=== PATIENT | female | born 1975 | race Caucasian/White ===

== ENCOUNTER 2018-11-08 10:10 | Emergency (ER) | payer MEDICAID ==
[~2018-11-08] VITALS: Ht 154.9 cm; Wt 70.2 kg
[2018-11-08 10:12] VITALS: Ht 154.9 cm; Wt 70.2 kg
[2018-11-08] MEDS ORDERED: FER325 PO (15:46)
[2018-11-08] MEDS ORDERED: DOCU-144 PO (15:46)
--- NOTE | 2018-11-08 15:55 | ERD ---
ER Documentation Chief Complaint Chief Complaint pt bib family with c/o vag bleeding x 11 days , pale HPI 43-year-old female presenting with vaginal bleeding times 11 days. Patient has been passing clots. She never had this before. She is not . Medical history is hypertension. Has not taken medications. Allergic to amoxicillin. Social history denies. ROS All systems reviewed and are negative except as per history of present illness. Medications Home Meds Active Scripts Docusate Sodium* (Colace*) 100 Mg Capsule, 100 MG PO DAILY, #30 CAP Prov:DON ROSAS PA-C 11/08/18 Ferrous Sulfate* (Ferrous Sulfate*) 325 Mg Tabec, 325 MG PO DAILY, #30 TAB Prov:DON ROSAS PA-C 11/08/18 Allergies Allergies: Coded Allergies: amoxicillin (Verified Allergy, Unknown, 11/08/18) PMhx/Soc Hx Alcohol Use: No Hx Substance Use: No Hx Tobacco Use: No Smoking Status: Never smoker FmHx Family History: No diabetes, No coronary disease, No other Physical Exam Vitals Vital Signs Date Temp Pulse Resp B/P (MAP) Pulse Ox O2 O2 Flow FiO2 Time Delivery Rate 11/08/18 99.3 96 18 177/92 100 10:12 (120) Physical Exam GENERAL: The patient is well-appearing, well-nourished, in no acute distress CHEST: Clear to auscultation bilaterally. There are no rales, wheezes or rhonchi. HEART: Regular rate and rhythm. No murmurs, clicks, rubs or gallops. No S3 or S4. ABDOMEN:Soft, nontender and nondistended. Good bowel sounds. No rebound or guarding. No gross peritonitis. No gross organomegaly or masses. : Pulling blood noted within the vaginal vault. Result Diagram: 11/08/18 1211 11/08/18 1101 Results 24 hrs Laboratory Tests Test 11/08/18 11:01 11/08/18 11:02 11/08/18 12:11 White Blood Count 14.3 10^3/ul 12.9 10^3/ul Red Blood Count 3.17 10^6/ul 3.07 10^6/ul Hemoglobin 9.2 g/dl 8.9 g/dl Hematocrit 28.2 % 27.2 % Mean Corpuscular Volume 89.0 fl 88.6 fl Mean Corpuscular Hemoglobin 29.0 pg 29.0 pg Mean Corpuscular 32.6 g/dl 32.7 g/dl Hemoglobin Concent Red Cell Distribution Width 13.6 % 13.6 % Platelet Count 300 10^3/UL 313 10^3/UL Mean Platelet Volume 10.4 fl 9.6 fl Immature Granulocytes % 0.300 % 0.300 % Neutrophils % 69.1 % 70.3 % Lymphocytes % 22.7 % 21.9 % Monocytes % 5.9 % 5.6 % Eosinophils % 1.7 % 1.6 % Basophils % 0.3 % 0.3 % Nucleated Red Blood Cells % 0.0 /100WBC 0.0 /100WBC Immature Granulocytes # 0.050 10^3/ul 0.040 10^3/ul Neutrophils # 9.9 10^3/ul 9.1 10^3/ul Lymphocytes # 3.2 10^3/ul 2.8 10^3/ul Monocytes # 0.9 10^3/ul 0.7 10^3/ul Eosinophils # 0.3 10^3/ul 0.2 10^3/ul Basophils # 0.0 10^3/ul 0.0 10^3/ul Nucleated Red Blood Cells # 0.0 10^3/ul 0.0 10^3/ul Urine Color YELLOW Urine Clarity CLEAR Urine pH 5.0 Urine Specific [place] 1.008 Urine Ketones NEGATIVE mg/dL Urine Nitrite NEGATIVE mg/dL Urine Bilirubin NEGATIVE mg/dL Urine Urobilinogen NEGATIVE mg/dL Urine Leukocyte Esterase NEGATIVE Cuong/ul Urine Microscopic RBC > 182 /HPF Urine Microscopic WBC 4 /HPF Urine Squamous Epithelial Cells FEW /HPF Urine Hemoglobin 3+ mg/dL Urine Glucose 3+ mg/dL Urine Total Protein NEGATIVE mg/dl Sodium Level 137 mmol/L Potassium Level 3.9 mmol/L Chloride Level 104 mmol/L Carbon Dioxide Level 22 mmol/L Anion Gap 11 Blood Urea Nitrogen 9 mg/dl Creatinine 0.56 mg/dl Est Glomerular Filtrat > 60 mL/min Rate mL/min Glucose Level 132 mg/dl Calcium Level 8.7 mg/dl Total Bilirubin 0.0 mg/dl Direct Bilirubin 0.00 mg/dl Indirect Bilirubin 0.0 mg/dl Aspartate Amino 37 IU/L Transf (AST/SGOT) Alanine 49 IU/L Aminotransferase (ALT/SGPT) Alkaline Phosphatase 69 IU/L Total Protein 6.9 g/dl Albumin 3.9 g/dl Globulin 3.00 g/dl Albumin/Globulin Ratio 1.30 Lipase 60 U/L POC Beta HCG, Qualitative NEGATIVE Procedures/MDM DIAGNOSTIC IMAGING REPORT Patient: MYRA MARTINEZ : 1975 Age: 43 Sex: F MR #: [id number] DOS: 11/08/18 1048 Ordering MD: MORALES ROSAS PA-C [facility] Room/Bed: PROCEDURE: US Pelvis. CLINICAL INDICATION: Vaginal bleeding TECHNIQUE: Multiple sonographic images of the pelvis were obtained utilizing transabdominal and endovaginal technique. The images were reviewed on a PACS workstation. COMPARISON: None. FINDINGS: The uterus is normal in size with a normal appearance of the myometrium. The uterus measures 8.6 x 4.6 x 6.1 cm. The endometrial stripe is homogeneous in appearance and has the thickness of 10 mm. The right ovary is normal in size and echogenicity. There is normal Doppler flow The right ovary measures 2.3 x 1.5 x 2.0 cm. The left ovary was not seen. No free fluid is present within the pelvis. RPTAT: AA IMPRESSION: Unremarkable pelvic ultrasound. Left ovary not visualized. ER Course: Dr. Hoover came to evaluate patient at bedside. Using ring forceps she removed a polyp which was sent for pathology. Bleeding resolved. MDM: 43-year-old female presenting with a polyp which was removed in the emergency room. Bleeding resolved. I have low suspicion for other acute abdominal emergencies. Patient will be discharged with supportive medications to improve hemoglobin after bleeding. Given polyp was removed hemoglobin will l ikely return to normal as bleeding has resolved. I have low suspicion for other acute abdominal emergencies. I have low suspicion for pelvic abnormalities. Patient is discharged with supportive medications. Patient is discharged with strict ER precautions and recommended follow-up with REFERRAL NURSE. All questions answered at discharge Departure Diagnosis: Primary Impression: Vaginal bleeding Condition: Stable Patient Instructions: Uterine Fibroids Referrals: REFERRAL NURSE [place] [id number] [facility] [address] [place] [address] [id number] OFFICE FAX RACHEL [place] [address] [place] [address] [address] [place] [address] [place] [address] DR RICCI [facility] [address], [address] [address] [address] MEDRANO [facility] [address] [address] [facility], [place] [address] [facility] [address] [place] [address] [facility] [id number] [address] PRÉEZ EV[address] [facility], [place] [address] DR MAC, MIKAYLA [address] [facility]. [address], [place] [address] DR FLORES [facility] [address] [place] [address] Additional Instructions: FOLLOW UP WITH YOUR PRIMARY CARE PHYSICIAN TOMORROW.Return to this facility if you are not improving as expected. DON ROSAS PA-C Nov 08, 2018 15:55
--- NOTE | 2018-11-08 16:05 | CONS ---
Date/Time of Note Date/Time of Note DATE: 11/08/18 TIME: 16:04 Assessment/Plan Assessment/Plan Assessment/Plan A: Menorrhagia. Anemia. Aborting myoma or polyp. P: The tissue was removed and the bleeding promptly resolved. Pt was given some juice, is to wait 30 minutes to assess bleeding status and then may be d/c'ed home. Will call the pt with the pathology results in a few days. Result Diagram: 11/08/18 1211 11/08/18 1101 Results 24hrs Laboratory Tests Test 11/08/18 11:01 11/08/18 11:02 11/08/18 12:11 White Blood Count 14.3 H 12.9 H Red Blood Count 3.17 L 3.07 L Hemoglobin 9.2 L 8.9 L Hematocrit 28.2 L 27.2 L Mean Corpuscular Volume 89.0 88.6 Mean Corpuscular Hemoglobin 29.0 29.0 Mean Corpuscular Hemoglobin Concent 32.6 32.7 Red Cell Distribution Width 13.6 13.6 Platelet Count 300 313 Mean Platelet Volume 10.4 9.6 Immature Granulocytes % 0.300 0.300 Neutrophils % 69.1 70.3 Lymphocytes % 22.7 21.9 Monocytes % 5.9 5.6 Eosinophils % 1.7 1.6 Basophils % 0.3 0.3 Nucleated Red Blood Cells % 0.0 0.0 Immature Granulocytes # 0.050 H 0.040 H Neutrophils # 9.9 H 9.1 H Lymphocytes # 3.2 H 2.8 Monocytes # 0.9 0.7 Eosinophils # 0.3 0.2 Basophils # 0.0 0.0 Nucleated Red Blood Cells # 0.0 0.0 Urine Color YELLOW Urine Clarity CLEAR Urine pH 5.0 Urine Specific [place] 1.008 Urine Ketones NEGATIVE Urine Nitrite NEGATIVE Urine Bilirubin NEGATIVE Urine Urobilinogen NEGATIVE Urine Leukocyte Esterase NEGATIVE Urine Microscopic RBC > 182 H Urine Microscopic WBC 4 Urine Squamous Epithelial Cells FEW Urine Hemoglobin 3+ H Urine Glucose 3+ H Urine Total Protein NEGATIVE Sodium Level 137 Potassium Level 3.9 Chloride Level 104 Carbon Dioxide Level 22 Anion Gap 11 Blood Urea Nitrogen 9 Creatinine 0.56 Est Glomerular Filtrat Rate mL/min > 60 Glucose Level 132 Calcium Level 8.7 Total Bilirubin 0.0 L Direct Bilirubin 0.00 Indirect Bilirubin 0.0 Aspartate Amino Transf (AST/SGOT) 37 Alanine Aminotransferase (ALT/SGPT) 49 Alkaline Phosphatase 69 Total Protein 6.9 Albumin 3.9 Globulin 3.00 Albumin/Globulin Ratio 1.30 Lipase 60 POC Beta HCG, Qualitative NEGATIVE Consultation Date/Type/Reason Admit Date/Time Nov 08, 2018 Date of Consultation: Nov 08, 2018 Type of Consult POLICE WORKER Reason for Consultation Heavy vaginal bleeding. Requesting Provider: DON ROSAS PA-C Hx of Present Illness Pt is a 43 y.o. s/p BTL with an 11 day h/o heavy vaginal bleeding. Pt reports she had a pap smear and POLICE WORKER exam 2 years ago in [facility] when she was also having heavy bleeding and she had a vaginal procedure at the hospital to remove polyps that stopped the bleeding and she has been fine until now. She does say she was given progesterone to take afterwards any time she had bleeding for 3 months and then she stopped. Her periods have been regular and normal with the last prior 10/15. Then 10/28 she started with this bleeding. The clots have been medium sized to large.She does have some dizziness.No HOOPER's. Respiratory: no complaints Cardiovascular: no complaints Genitourinary: bleeding Neurologic: no complaints Psychological: no complaints, nl mood/affect Past Medical History Medical History: hypertension (which was diagnosed during her only and she has been on blood pressure medication since that time, 12 years ago.) Medications Atenolol 50 mg q day Allergies: Coded Allergies: amoxicillin (Verified Allergy, Unknown, 11/08/18) Past Surgical History Tubal ligation. D and C? to remove uterine polyps. Family History Significant Family History: no pertinent family hx Social History Alcohol Use: none Smoking Status: Never smoker Drug Use: none Exam/Review of Systems Vital Signs Vitals Vital Signs Date Temp Pulse Resp B/P (MAP) Pulse Ox O2 O2 Flow FiO2 Time Delivery Rate 11/08/18 99.3 96 18 177/92 100 10:12 (120) Exam Constitutional: alert, oriented, well developed Psych: no complaints, nl mood/affect Respiratory: clear to auscultation, normal air movement Cardiovascular: regular rate and rhythm, nl pulses Gastrointestinal: soft, nl liver, spleen, non-tender Genitourinary - Female: other (Large clots in the vaginal vault were removed to reveal and aborting myoma or polyp which was grasped with a pair of ring forceps and twisted until it came off.) Neurological: NURSE ORTHOPEDIC II-XII intact, nl mental status Imaging Imaging Pelvic US essentially normal. EVELIO PÉREZ MD Nov 08, 2018 16:05
[2018-11-08 16:24] VITALS: BP 127/70; PULSE 95; RESP 18
== END 2018-11-08 16:36 | disposition home or self-care (01) ==
LOC: FTE 10:10
DX: N93.9 Abnormal uterine and vaginal bleeding, unspecified (principal)
CPT/HCPCS: 36415; 76830; 76856; 80053; 81001; 81025; 83690; 85025; Z7502; 88305

== ENCOUNTER 2018-11-12 08:00 | Emergency (ER) | payer MEDICAID ==
[~2018-11-12] VITALS: Wt 70.9 kg
[~2018-11-12 08:00] MED LIST: DOCU-144 PO; FER325 PO
[2018-11-12] MEDS ORDERED: ATEN50TA PO (09:20)
[2018-11-12] MEDS ORDERED: ORTNOV PO (10:16)
--- NOTE | 2018-11-12 10:18 | ERD ---
ER Documentation Chief Complaint Chief Complaint vaginal bleeding x 14 days.here 0n 19th hgb 8.9 HPI Patient is a 43-year-old female with hypertension and polyps who presents with bleeding. She was seen on November 08 for vaginal bleeding. She had a hemoglobin of 8.9 at that time. She was seen by OB on that visit and discharge. She continued to have bleeding over the last few days. She said that she is changing her pads every 30 minutes. She felt shortness of breath and weakness. She does not currently have a primary doctor or a pin attacher. She was supposed to follow-up with Dr. Portillo from previous discharge paperwork but did not follow-up. ROS All systems reviewed and are negative except as per history of present illness. Medications Home Meds Active Scripts Norethindrone-Ethinyl Estradiol (Ortho-Novum ()) 0.035-1 Mg Tablet, 1 TAB PO DAILY, #28 TAB Prov:LAKSHMI MARTINEZ MD 11/12/18 Reported Medications Atenolol* (Atenolol*) 50 Mg Tablet, 50 MG PO DAILY, #30 TAB 11/12/18 Discontinued Scripts Docusate Sodium* (Colace*) 100 Mg Capsule, 100 MG PO DAILY, #30 CAP Prov:DON ROSAS PA-C 11/08/18 Ferrous Sulfate* (Ferrous Sulfate*) 325 Mg Tabec, 325 MG PO DAILY, #30 TAB Prov:DON ROSAS PA-C 11/08/18 Allergies Allergies: Coded Allergies: amoxicillin (Verified Allergy, Unknown, 11/08/18) PMhx/Soc History of Surgery: Yes (uterine polyps removed) Anesthesia Reaction: No Hx Neurological Disorder: No Hx Respiratory Disorders: No Hx Cardiac Disorders: No Hx Psychiatric Problems: No Hx Miscellaneous Medical Probl: Yes (HTN) Hx Alcohol Use: No Hx Substance Use: No Hx Tobacco Use: No Smoking Status: Never smoker FmHx Family History: diabetes Physical Exam Vitals Vital Signs Date Temp Pulse Resp B/P (MAP) Pulse Ox O2 O2 Flow FiO2 Time Delivery Rate 11/12/18 72 18 124/64 98 Room Air 10:52 (84) 11/12/18 67 16 127/52 100 Room Air 08:59 (77) 11/12/18 98.6 77 18 148/76 99 08:02 (100) Physical Exam Const: No acute distress Head: Atraumatic Eyes: Normal Conjunctiva ENT: Normal External Ears, Nose and Mouth. Neck: Full range of motion. No meningismus. Resp: Clear to auscultation bilaterally Cardio: Regular rate and rhythm, no murmurs Abd: Soft, non tender, non distended. Normal bowel sounds Skin: No petechiae or rashes Back: No midline or flank tenderness Ext: No cyanosis, or edema Neur: Awake and alert Psych: Normal Mood and Affect Result Diagram: 11/12/1883011/12/18830 Results 24 hrs Laboratory Tests Test 11/12/18 08:31 11/12/18 09:28 11/12/18 09:30 White Blood Count 10.7 10^3/ul Red Blood Count 2.74 10^6/ul Hemoglobin 8.1 g/dl Hematocrit 25.3 % Mean Corpuscular Volume 92.3 fl Mean Corpuscular Hemoglobin 29.6 pg Mean Corpuscular 32.0 g/dl Hemoglobin Concent Red Cell Distribution Width 15.1 % Platelet Count 386 10^3/UL Mean Platelet Volume 9.4 fl Immature Granulocytes % 0.500 % Neutrophils % 56.2 % Lymphocytes % 32.2 % Monocytes % 7.0 % Eosinophils % 3.7 % Basophils % 0.4 % Nucleated Red Blood Cells % 0.0 /100WBC Immature Granulocytes # 0.050 10^3/ul Neutrophils # 6.0 10^3/ul Lymphocytes # 3.4 10^3/ul Monocytes # 0.8 10^3/ul Eosinophils # 0.4 10^3/ul Basophils # 0.0 10^3/ul Nucleated Red Blood Cells # 0.0 10^3/ul Sodium Level 142 mmol/L Potassium Level 3.8 mmol/L Chloride Level 105 mmol/L Carbon Dioxide Level 28 mmol/L Anion Gap 9 Blood Urea Nitrogen 8 mg/dl Creatinine 0.60 mg/dl Est Glomerular Filtrat > 60 mL/min Rate mL/min Glucose Level 97 mg/dl Calcium Level 8.8 mg/dl POC Beta HCG, Qualitative NEGATIVE Urine Color YELLOW Urine Clarity CLEAR Urine pH 6.0 Urine Specific [place] 1.010 Urine Ketones NEGATIVE mg/dL Urine Nitrite NEGATIVE mg/dL Urine Bilirubin NEGATIVE mg/dL Urine Urobilinogen NEGATIVE mg/dL Urine Leukocyte Esterase NEGATIVE Cuong/ul Urine Microscopic RBC > 182 /HPF Urine Microscopic WBC 3 /HPF Urine Bacteria FEW /HPF Urine Hemoglobin 3+ mg/dL Urine Glucose NEGATIVE mg/dL Urine Total Protein NEGATIVE mg/dl Procedures/MDM EKG read by me: Rate/Rhythm: Regular rate and rhythm at a rate of 72 Intervals: Normal Impression: No evidence of ischemia or arrhythmia Ultrasound pelvis done just a few days ago was negative per radiology. Patient is a 43-year-old female who presents with dysfunctional uterine bleeding. She is not . Ultrasound was done a few days ago which was basically negative. Hemoglobin today is 8.1 and she does not require transfusion. The patient is otherwise well-appearing with stable vital signs. She will be given a prescription for Ortho-Novum for dysfunctional uterine bleeding but will need to follow-up with Dr. Portillo from gynecology within 24-48 hours. She can return for any worsening symptoms. Departure Diagnosis: Primary Impression: Dysfunctional uterine bleeding Additional Impression: Anemia Anemia type: unspecified type Qualified Codes: D64.9 - Anemia, unspecified Condition: Fair Patient Instructions: Dysfunctional Uterine Bleeding Referrals: TAMERA PORTILLO MD Additional Instructions: Llame al doctor MAKIRT y dustin adriel CHAS PARA DENTRO DE 1-2 MURRY.Dgale a la secretaria que nosotros le instruimos hacer esta chas.Avise o llame si dalton condicin se empeora antes de la chas. Regresa aqui si peor o no mejor. LAKSHMI MARTINEZ MD Nov 12, 2018 10:18
[2018-11-12 10:52] VITALS: BP 124/64; PULSE 72; RESP 18
== END 2018-11-12 10:52 | disposition home or self-care (01) ==
LOC: E/R 08:00
DX: N93.9 Abnormal uterine and vaginal bleeding, unspecified (principal); D64.9 Anemia, unspecified; I10 Essential (primary) hypertension; R10.2 Pelvic and perineal pain
CPT/HCPCS: 80048; 81001; 81025; 85025; 86850; 86900; 86901; 93005; Z7502